=== PATIENT | male | born 1955 | race Hispanic/Latino ===

== ENCOUNTER 2022-12-30 11:53 | Emergency (ER) | payer OTHER, BC ==
[~2022-12-30] VITALS: Ht 165.1 cm; Wt 92.5 kg
[2022-12-30 15:09] VITALS: BP 150/80; PULSE 79; RESP 18; O2SAT 98
== END 2022-12-30 15:33 | disposition home or self-care (01) ==
LOC: EDH 11:53
DX: M54.50 Low back pain, unspecified (principal); E11.9 Type 2 diabetes mellitus without complications; V89.2XXA Person injured in unspecified motor-vehicle accident, traffic, initial encounter; Y93.89 Activity, other specified; Y99.8 Other external cause status; Y92.89 Other specified places as the place of occurrence of the external cause